=== PATIENT | female | born 1990 | race Caucasian/White ===

== ENCOUNTER 2018-09-22 00:39 | Emergency (ER) | payer OTHER ==
[~2018-09-22] VITALS: Ht 160 cm; Wt 57.6 kg
[2018-09-22 00:47] VITALS: Ht 160 cm; Wt 57.6 kg
[2018-09-22 03:55] LABS: BASOPHIL % 0.4 % (0-2); PLATELET COUNT 259 x10^3mcL (130-400); RED CELL DISTRIBUTION WIDTH 11.9 % (11.5-14.5)
[2018-09-22 04:00] LABS: CALCIUM 9.1 mg/dL (8.5-10.1); CARBON DIOXIDE 23.7 mmol/L (21-32); CHLORIDE SERUM 104 mmol/L (98-107); CREATININE SERUM 0.9 mg/dL (0.6-1.0); GFR1 > 60 mL/min; GLUCOSE SERUM 88 mg/dL (74-106); POTASSIUM SERUM 3.7 mmol/L (3.5-5.1); SODIUM SERUM 140 mmol/L (136-145)
[2018-09-22 04:05] LABS: ALBUMIN 4.1 g/dL (3.4-5.0); ALKALINE PHOSPHATASE 50 U/L (46-116); ALT/SGPT 22 U/L (14-59); AST/SGOT 15 U/L (15-37); BILIRUBIN TOTAL 0.4 mg/dL (0.20-1.00); LIPASE 155 IU/L (73-393)
[2018-09-22 05:19] VITALS: BP 120/68
== END 2018-09-22 05:19 | disposition home or self-care (01) ==
LOC: ED 00:39
PROVIDERS: Emergency Medicine
DX: R10.31 Right lower quadrant pain (principal)
CPT/HCPCS: 36415; J1885

== ENCOUNTER 2020-04-07 20:17 | Emergency (ER) | payer OTHER ==
[~2020-04-07] VITALS: Ht 160 cm; Wt 60.8 kg
[2020-04-07 20:25] VITALS: Ht 160 cm; Wt 60.8 kg
[2020-04-07 21:08] VITALS: BP 132/87
== END 2020-04-07 21:08 | disposition home or self-care (01) ==
LOC: ED 20:17
DX: M79.605 Pain in left leg (principal)

== ENCOUNTER 2020-07-22 05:15 | Emergency (ER) | payer OTHER ==
[~2020-07-22] VITALS: Ht 160 cm; Wt 60.4 kg
[2020-07-22 05:31] VITALS: Ht 160 cm; Wt 60.4 kg
[2020-07-22 05:57] VITALS: BP 120/76
== END 2020-07-22 05:57 | disposition home or self-care (01) ==
LOC: ED 05:15
DX: F41.0 Panic disorder [episodic paroxysmal anxiety] (principal)